=== PATIENT | female | born 1970 | race Hispanic/Latino ===

== ENCOUNTER → 2025-03-30 | Day surgery (SDC) | payer BC ==
[~2025-03-30] MED LIST: ACETAMINOPHEN 1000 MG/100 ML 100 ML IV ONE; BUPIVACAINE LIPOSOME/PF 266 MG/20 ML IJ ONE; DEXAMETHASONE SOD PHOS INJ 4 MG/ML SDV ONE; FENTANYL CITRATE/PF 100MCG/2 ML INJ ONE; LIDOCAINE HCL 2% LOCAL INJ 5 ML SDV VIAL INJ ONE; MIDAZOLAM HCL 2 MG/2 ML VIAL ONE; ONDANSETRON HCL INJ 2MG/ML 2ML 2 MG/ML VIAL ONE; PROPOFOL IV EMULSION 10 MG/ML 20 ML VIAL ONE; ROCURONIUM BROMIDE 1 ML IV ONE; SEVOFLURANE INHAL SOLN 250 ML PEN BTL ONE; SODIUM CHLORIDE 0.9% 100 ML ONE; SUGAMMADEX SODIUM 200 MG/2 ML VIAL IV ONE
[2025-03-30] MEDS: CEFAZOLIN SODIUM 0 GM ONE (07:01)
[2025-03-30] MEDS: LACTATED RINGER'S 1,000 ML ONE (07:02)
[2025-03-30] MEDS: CEFAZOLIN SODIUM 2 GM ONE (07:03)
[2025-03-30 11:05] VITALS: TEMP 97
[2025-03-30 12:15] VITALS: BP 130/79; PULSE 72; RESP 14; O2SAT 97
== END | disposition home or self-care (01) ==
LOC: OR 05:38
PROVIDERS: ATTEND Orthopaedic Surgery Sports Medicine
DX: S46.012A Strain of muscle(s) and tendon(s) of the rotator cuff of left shoulder, initial encounter (principal); S46.112A Strain of muscle, fascia and tendon of long head of biceps, left arm, initial encounter; S43.432A Superior glenoid labrum lesion of left shoulder, initial encounter; M75.42 Impingement syndrome of left shoulder; M75.82 Other shoulder lesions, left shoulder; W18.39XA Other fall on same level, initial encounter; Z88.6 Allergy status to analgesic agent; Z01.810 Encounter for preprocedural cardiovascular examination; Z79.85 Long-term (current) use of injectable non-insulin antidiabetic drugs
CPT/HCPCS: 23430; 29826; 29827; 93005; C1713 ×3; C1889; J0131; J0666; J1100; J2003; J2250; J2405; J2704; J3010; J3590; J7050; J7121